=== PATIENT | female | born 1945 | race Caucasian/White ===

== ENCOUNTER → 2017-10-28 | Outpatient (CLI) | payer MEDICARE, OTHER ==
[~2017-10-28] MED LIST: BRI10OD OD; CELE-1 PO; COMODPT OD; DOC100 PO; DOCU100T19 PO; GOLYTE PO; HYDR-3250 PO; HYDR-3378 PO; HYDR-389 PO; HYOS0.37 PO; IRO150 PO; IRON1CAP52 PO; LATODPT OD; LOR7.5/325 PO; LOSA50TA72 PO; LOSA50TA73 PO; LOTE5DRO3 OD; MULT1TAB64 PO; NAPR-1043 PO; NAPR220C12 PO; OMEP-125 PO; OMEP-218 PO; OMEP40CA45 PO; OMEP40CA48 PO; OXY10 PO; OXYC-865 PO; PREOD OS; RANI-318 PO; RIV10 PO; VIT1TABL22 PO
[2017-10-28 10:48] LABS: INR 0.99
== END ==
LOC: LAB 10:06
PROVIDERS: ATTEND Anesthesiology
DX: Z01.812 Encounter for preprocedural laboratory examination (principal); M19.041 Primary osteoarthritis, right hand
CPT/HCPCS: 36415; 85610

== ENCOUNTER 2017-11-18 00:16 | Day surgery (SDC) | payer MEDICARE, OTHER ==
[~2017-11-18] VITALS: Ht 157.5 cm; Wt 8.2 kg
[2017-11-18] MEDS ORDERED: fentaNYL CITR 250 MCG/5 ML AMP ONE (09:36)
[2017-11-18] MEDS ORDERED: LIDOCAINE 2% IV 100 MG/5ML SYR ONE (09:38)
[2017-11-18 09:43] VITALS: BP 152/89
[2017-11-18] MEDS: FAMOTIDINE 20 MG TAB PO ONE ×2 (09:44→09:47)
[2017-11-18] MEDS ORDERED: BACITRACIN/POLYMY B OINT 15 GM TP ONE (10:37)
[2017-11-18] MEDS ORDERED: ROPIVACAINE 0.2% 20 ML VIAL ONE (10:37)
[2017-11-18] MEDS ORDERED: MIDAZOLAM 2 MG/2 ML VIAL IVP PRN (10:45)
[2017-11-18] MEDS ORDERED: NORMOSOL R SOLN(*) 1000 ML BAG 1,000 ML IV PRN (10:45)
[2017-11-18] MEDS ORDERED: LIDOCAINE/SOD BICARB 8.4% SYR ID ONE (10:45)
[2017-11-18] MEDS ORDERED: CLINDAMYCIN(*) 600 MG/NS 50 ML 50 ML IVPB ONE (10:45)
[2017-11-18] MEDS ORDERED: DEXAMETHASONE SOD 4 MG/ML VIAL ONE (11:23)
[2017-11-18] MEDS ORDERED: ONDANSETRON 4 MG/2 ML VIAL ONE (11:28)
[2017-11-18] MEDS ORDERED: PER (13:04)
[2017-11-18] MEDS ORDERED: fentaNYL CITR 100 MCG/2 ML AMP ONE (13:24)
[2017-11-18] MEDS ORDERED: PROMETHAZINE 25 MG/ML 1 ML AMP ONE (13:27)
[2017-11-18 14:40] VITALS: BP 142/84
[2017-11-18 15:15] VITALS: BP 130/71
--- NOTE | 2017-11-18 22:38 | OPERATIVE REPORT 1 ---
EVENT DATE: November 18, 2017 SURGEON: Shankar Gore MD ANESTHESIOLOGIST: William Blackwell MD ANESTHESIA: General LMA anesthesia. PUTTY PATCHER: Alejandro Sung PA-C PREOPERATIVE DIAGNOSIS Right thumb osteoarthritis basal joint arthritis. POSTOPERATIVE DIAGNOSIS Right thumb osteoarthritis basal joint arthritis. FINDINGS The patient had an arthritic right thumb base, but was amenable for trapezium removal and then tying in the FCR. PROCEDURE PERFORMED Right thumb basal joint arthroplasty with suspension plasty of the flexor carpi radialis. ESTIMATED BLOOD LOSS Minimal. DRAINS None. COMPLICATIONS None. IMPLANTS USED Two 1.0 Juggerants. SPECIMENS None. TOURNIQUET TIME About 55 minutes. INDICATIONS AND HISTORY This patient is 72-year-old female who presented to my clinic for evaluation of right thumb pain and irritation going on for some time. She failed all conservative management with arthritis associated with it, and she wanted to go ahead with a right thumb basal joint arthroplasty today, November 18, 2017. The risks and benefits were discussed with the patient. Informed consent was obtained. We also talked about the aspects of nerve injury or irritation associated with it afterwards and incomplete relief associated with pain and then pulling and breaking of the suspension plasty. She said she understood all these and wanted to go ahead with that today. DESCRIPTION OF PROCEDURE As the patient was brought in the operating room, she and the procedure were both verified. She was placed supine on the operating table and induced and intubated by Anesthesia. The right upper extremity was then prepped and draped in the usual fashion. A timeout was observed verifying the correct patient and procedure. The standard incision was made after inflation of the tourniquet over the basal joint of the thumb. This was taken in a hockey stick approach in order to go get the FCR later, and it was taken through the skin and subcutaneous tissue. I did identify the superficial nerve on the radial side, and so I was able to retract that back to the radial side, and then I was able to cut through the capsule and base of the metacarpal and to the trapezium. Once I identified the trapezium, I was then able to dissect around it using a [place] blade and sharp dissection. This was then followed by cutting the trapezium in two and then removing the two main portions without any major difficulty using a combination of osteotomes, a [place] blade, and a [place] elevator. Once I was able to do this , I then was able to get down into the base where there were a couple of spurs or osteophytes and then remove these without any difficulty, and then we had a good wound bed in order to put the FCR and suspend it into this area. This was then followed by irrigation with copious amounts of saline, and then I was able to dissect back towards the distal aspect of the FCR right at the wrist crease. Once I identified this and tagged it, I then went more proximal. Once more proximal, I was able to identify the FCR about a third the midway up the forearm. I then made a small incision into this area and then was able to get down to the FCR and then cut the FCR tendon proper, and then I was able to pull it back up into the wrist area. I then used the spreading technique to get it back through the carpal bone and then pulled it up into the area vacated by the trapezium at its natural attachment. I then put a Prolene up and down the tendon without any major difficulty in order to accordion it down in the wound. I then also secured it again with two more anchors down into the wound itself with the two anchors into the base of the metacarpal, which I decorticated off the backside. This was then followed by tying of the Prolene sutures with accordion the tendon all the way down. This was then followed by putting those sutures then back through the capsule and then tying the capsule with the sutures from the Juggernauts also. Once I was able to do this, everything looked stable, and there were no signs of major kick to the thumb and no signs of problems or subluxation, and so therefore I then irrigated again with saline and then closed the skin with a 3-0 Vicryl in a couple interrupted subcuticular stitches and then a subcutaneous 4-0 running Monocryl with the ends tied in on the skin. The proximal wound was closed with Vicryl also. This was then followed by anesthetization with ropivacaine and then dressing with Steri-Strips, gauze 4 x 4's, and a thumb spica splint. Then , the patient was awakened, extubated, and transferred to PACU in stable condition. The tourniquet was let down at just under an hour. [place]
== END 2017-11-18 14:35 | disposition home or self-care (01) ==
LOC: OR 00:16
PROVIDERS: ATTEND Orthopaedic Surgery
DX: M19.041 Primary osteoarthritis, right hand (principal)
CPT/HCPCS: 26535; 76000; A4565; A9270; C1713; J1100; J2001; J2405; J2550; J2795; J3010; J3490

== ENCOUNTER → 2018-09-07 | Outpatient (CLI) | payer MEDICARE, OTHER ==
[~2018-09-07] MED LIST changes: +ALBU8.5H IH; +CRAN400C2 PO; +CYCL1DRO6 OP; +DORZ10DR24 OP; +FLUT16SP19; -LOSA50TA72 PO; +LOSA50TA80 PO; +PER; +PRED15SO5 PO; +TIMO5DRO3 OP
--- NOTE | 2018-09-07 12:48 | RADIOLOGY IMAGING REPORT ---
FACILITY: [facility] PATIENT NAME: Karen Khan : 1945 MR: [id number] V: [id number] EXAM DATE: ORDERING PHYSICIAN: JOHNNY SHAIKH TECHNOLOGIST: [place] [facility] [place] Karen Khan : 1945 Visit/Account:[id number] Date of Sevice: 09/07/2018 CHEST PA LAT INDICATION: 10/22/2013 COMPARISON: None available FINDINGS: Heart size within normal limits. There is a large hiatal hernia. There is no focal infiltrate or lobar consolidation. There is no pneumothorax or pleural effusion. IMPRESSION: 1. No acute cardiopulmonary process. Report Dictated By: Jewel Don at 09/07/2018 12:44 PM Report E-Signed By: Jewel Don at 09/07/2018 12:45 PM WSN:[email or web address]
== END ==
LOC: RAD 11:49
PROVIDERS: ATTEND Family Medicine
DX: K44.9 Diaphragmatic hernia without obstruction or gangrene (principal)
CPT/HCPCS: 71046